=== PATIENT | female | born 1965 ===

== ENCOUNTER 2017-06-27 15:23 | Emergency (ER) | payer OTHER ==
[2017-06-27 15:32] VITALS: BP 130/81; PULSE 68; RESP 18; TEMP 98; O2SAT 99
--- NOTE | 2017-06-27 16:31 | ED PDOC ---
Upper Extremity Pain/Injury Time Seen by Provider: 06/27/17 15:39 Chief Complaint (Nursing): Upper Extremity Problem/Injury Chief Complaint (Provider): Upper Extremity Injury History Per: Patient History/Exam Limitations: no limitations Onset/Duration Of Symptoms: Days Current Symptoms Are (Timing): Still Present Additional Complaint(s): Jeanie Telles is a 51 year old female with no past medical history, who is presenting to the ER with complaints of left elbow pain, s/p patient struck it against a door 2 to 3 days ago. Patient states that the pain travels down the left hand. She denies any shoulder pain, hand pain, chest pain, or previous injury. Patient offers no other complaints at this time. PMD: Miguel Bernard Past Medical History Reviewed: Historical Data, Nursing Documentation, Vital Signs Vital Signs: Last Vital Signs Temp 98.0 F 06/27/17 15:30 Pulse 68 06/27/17 15:30 Resp 18 06/27/17 15:30 BP 130/81 06/27/17 15:30 Pulse Ox 99 06/27/17 15:30 - Medical History PMH: No Chronic Diseases - Family History Family History: States: Unknown Family Hx - Social History Alcohol: None Drugs: Denies - Allergies Allergies/Adverse Reactions: Allergies Allergy/AdvReac Type Severity Reaction Status Date / Time No Known Allergies Allergy Verified 06/27/17 15:30 Review of Systems ROS Statement: Except As Marked, All Systems Reviewed And Found Negative Constitutional: Negative for: Other (previous injury) Cardiovascular: Negative for: Chest Pain Musculoskeletal: Positive for: Arm Pain (elbow). Negative for: Shoulder Pain, Hand Pain Physical Exam - Reviewed Nursing Documentation Reviewed: Yes Vital Signs Reviewed: Yes - Physical Exam Appears: Positive for: Non-toxic, No Acute Distress Head Exam: Positive for: ATRAUMATIC, NORMAL INSPECTION, NORMOCEPHALIC Pulses-Radial (L): 2+ Pulses-Radial (R): 2+ Extremity: Positive for: Normal ROM (full, actively), Capillary Refill (normal less than 2 seconds), Other ((+) minimal tenderness to left lateral elbow, equal heel padder strength bilaterally, (-) erythema, break in skin integrity of left elbow,(-) warmth). Negative for: Deformity, Swelling - ECG O2 Sat by Pulse Oximetry: 99 (RA) Pulse Ox Interpretation: Normal Medical Decision Making Medical Decision Making: Patient informed that X-rays are required but patient refused. She requested an MRI. Patient informed that for an MRI she would need to follow up with an Orthopedist. She agrees to follow-up with Orthopedist. Provider explains to patient that an X-Ray is necessary to ascertain if there is a bony deformity or fracture; patient still refused the X-Ray stating that she would prefer to follow up with an Orthopedist. Provider applied an REMA wrap to patient's left elbow and provided her with an immobilizing shoulder sling. Patient strongly encouraged to visit an Orthopedist and encouraged to return to the Ed at any time for an X-Ray. Upon provider reevaluation patient is medically stable, and requires no further treatment in the ED at this time due to refusal of X-Ray. Patient will be discharged. Counseling was provided and all questions were answered regarding diagnosis and need for follow up with Orthopedist. There is agreement to discharge plan. Return if symptoms persist or worsen. Scribe Attestation: Documented by Nikki Garcia, acting as a scribe for Hemant Elliott PA-C. Provider Scribe Attestation: All medical record entries made by the Scribe were at my direction and personally dictated by me. I have reviewed the chart and agree that the record accurately reflects my personal performance of the history, physical exam, medical decision making, and the department course for this patient. I have also personally directed, reviewed, and agree with the discharge instructions and disposition. Disposition - Clinical Impression Clinical Impression: Elbow injury - Patient ED Disposition Is Patient to be Admitted: No - Disposition Referrals: [facility] [Outside] Blane Strauss MD [Staff Provider] - Disposition: Routine/Home Disposition Time: 16:00 Condition: STABLE Additional Instructions: Follow up with Dr. Herb Blackwell for further evaluation. Return to ED immediately if symptoms worsen. Instructions: Contusion (DC), How to Make a Hot/Cold Rice Pack Forms: [facility] (South Korean) Print Language: ARMENIAN
== END 2017-06-27 16:07 | disposition home or self-care (01) ==
LOC: H.ER 15:23
DX: S59.901A Unspecified injury of right elbow, initial encounter (principal); W22.8XXA Striking against or struck by other objects, initial encounter; Y92.89 Other specified places as the place of occurrence of the external cause